=== PATIENT | male | born 1960 | race Caucasian/White ===

== ENCOUNTER 2021-08-11 00:05 | Inpatient (IN) | payer BC ==
[2021-08-11] MEDS ORDERED: Fentanyl 100 MCG/2 ML VIAL ONE ×2 (01:04→14:43)
[2021-08-11 01:09] LABS: #Lymphocytes 0.9 thou/uL (1.20-3.40); #Monocytes 0.3 thou/uL (0.11-0.59); #Neutrophils 3.3 thou/uL (1.40-6.50); %Basophils 0.3 % (0.0-1.0); %Eosinophils 0.7 % (0.0-10.0); %Monocytes 7.3 % (0.0-10.0); %Neutrophils 71.7 % (42.0-75.0); Hemoglobin 12.3 g/dL (14.0-18.0); Mean Corpuscular HGB CONC 34.1 g/dL (32.0-36.0); Mean Corpuscular Hemoglobin 35.5 pg (27.0-31.0); Mean Platelet Volume 8.4 fL (7.4-10.4); Platelet Count 117 thou/uL (130-400); RBC Distribution Width 13.5 % (11.5-14.5); Red Blood Cell (RBC) Count 3.48 mill/uL (4.70-6.10); White Blood Cell (WBC) Count 4.6 thou/uL (4.8-10.8)
[2021-08-11 01:28] LABS: ALT (SGPT) 46 U/L (8-55); AST (SGOT) 65 U/L (5-34); Albumin 2.7 g/dL (3.5-5.0); Alkaline Phosphatase 82 U/L (40-110); Anion Gap 18 mmol/L (10-20); BUN (Urea Nitrogen) 28 mg/dL (8.4-25.7); Bilirubin, Total 0.8 mg/dL (0.2-1.2); Calc. Creatinine Clearance 0 mL/min (70-130); Carbon Dioxide 25 mmol/L (22-29); Chloride 101 mmol/L (98-107); Globulin 8.6 g/dL (2.4-3.5); Glucose 153 mg/dL (70-105); Potassium 3.9 mmol/L (3.5-5.1); Protein, Total 11.3 g/dL (6.0-8.3); Sodium 140 mmol/L (136-145)
[2021-08-11 01:31] LABS: Calcium 14.8 mg/dL (7.8-10.44)
[2021-08-11 01:54] LABS: Bilirubin Negative (Negative); Blood, Urine Negative (Negative); Clarity Clear (Clear); Glucose, Urine (Dipstick) Normal (Negative); Ketone, Urine Negative (Negative); Leukocyte Negative Leu/uL (Negative); Nitrite Negative (Negative); Protein, Urine (Dipstick) 10 mg/dL (Neg-Trace); Urobilinogen Normal mg/dL (Less than 2)
[2021-08-11 05:05] VITALS: BMI 32.3
[2021-08-11] MEDS ORDERED: Dexamethasone 10 MG in Sodium Chloride 0.9% 50 ML IVPB SCH (08:15)
[2021-08-11] MEDS ORDERED: Dexamethasone 10 MG/ML VIAL SLOW IVP SCH (08:30)
[2021-08-11 09:24] LABS: Free T4 (Free Thyroxine) 1.02 ng/dL (0.70-1.48)
[2021-08-11] MEDS ORDERED: Morphine 2 MG/ML VIAL SLOW IVP PRN (09:29)
[2021-08-11] MEDS ORDERED: Famotidine 20 MG TAB ONE (09:41)
[2021-08-11] MEDS ORDERED: Dexamethasone 10 MG/ML VIAL ONE (09:41)
[2021-08-11] MEDS: Famotidine 20 MG TAB PO SCH ×2 (09:43→19:47)
[2021-08-11] MEDS: Sodium Chloride 0.9% 1,000 ML IV SCH ×3 (09:43→19:48)
[2021-08-11 13:15] LABS: Creatinine, Urine 52.98 mg/dL (63-166)
[2021-08-11] MEDS ORDERED: Morphine 4 MG/ML VIAL ONE (13:24)
[2021-08-11] MEDS ORDERED: Sodium Bicarbonate 2.5 MEQ/5 ML VIAL ONE (14:43)
[2021-08-11] MEDS ORDERED: Metoprolol Tartrate 50 MG TAB PO SCH (18:30)
[2021-08-11] MEDS ORDERED: Morphine 4 MG/ML VIAL SLOW IVP PRN ×2 (18:45→19:06)
[2021-08-11] MEDS: Morphine 4 MG/ML VIAL SLOW IVP PRN (19:48)
[2021-08-12] MEDS: Morphine 4 MG/ML VIAL SLOW IVP PRN ×4 (00:55→17:37)
[2021-08-12] MEDS: Sodium Chloride 0.9% 1,000 ML IV SCH ×3 (05:15→19:33)
[2021-08-12 06:31] LABS: #Lymphocytes 0.7 thou/uL (1.20-3.40); #Monocytes 0.4 thou/uL (0.11-0.59); #Neutrophils 3.4 thou/uL (1.40-6.50); %Eosinophils 0.2 % (0.0-10.0); %Monocytes 9.8 % (0.0-10.0); %Neutrophils 74.9 % (42.0-75.0); Hemoglobin 11.3 g/dL (14.0-18.0); Mean Corpuscular HGB CONC 34.1 g/dL (32.0-36.0); Mean Corpuscular Hemoglobin 35.5 pg (27.0-31.0); Mean Platelet Volume 8.7 fL (7.4-10.4); Platelet Count 108 thou/uL (130-400); RBC Distribution Width 13.5 % (11.5-14.5); Red Blood Cell (RBC) Count 3.18 mill/uL (4.70-6.10); White Blood Cell (WBC) Count 4.5 thou/uL (4.8-10.8)
[2021-08-12 06:45] LABS: Anion Gap 16 mmol/L (10-20); BUN (Urea Nitrogen) 29 mg/dL (8.4-25.7); Calc. Creatinine Clearance 87 mL/min (70-130); Carbon Dioxide 24 mmol/L (22-29); Chloride 103 mmol/L (98-107); Glucose 132 mg/dL (70-105); Potassium 3.7 mmol/L (3.5-5.1); Sodium 139 mmol/L (136-145)
[2021-08-12 06:51] LABS: Calcium 13.3 mg/dL (7.8-10.44)
[2021-08-12] MEDS ORDERED: Sodium Bicarbonate 2.5 MEQ/5 ML VIAL ONE (08:00)
[2021-08-12] MEDS ORDERED: hydrALAZINE 20 MG/ML VIAL SLOW IVP PRN (08:04)
[2021-08-12] MEDS: hydrALAZINE 25 MG TAB PO SCH ×3 (09:51→20:21)
[2021-08-12] MEDS: Famotidine 20 MG TAB PO SCH ×2 (09:52→20:21)
[2021-08-12 12:51] LABS: SARS-CoV-2 PCR by NAA Not Detected (NotDetected)
[2021-08-12] MEDS ORDERED: Dexamethasone 40 MG in Sodium Chloride 0.9% 50 ML IVPB SCH (15:00)
[2021-08-12] MEDS: HYDROcodone/Acetaminophen 5/325 mg Tablet PO SCH ×2 (17:20→20:22)
[2021-08-12] MEDS: Zoledronic Acid 4 MG in Sodium Chloride 0.9% 100 ML IVPB SCH ×2 (17:43→19:30)
[2021-08-13] MEDS: Sodium Chloride 0.9% 1,000 ML IV SCH ×3 (01:04→21:00)
[2021-08-13] MEDS: HYDROcodone/Acetaminophen 5/325 mg Tablet PO SCH ×6 (01:04→20:38)
[2021-08-13 07:07] LABS: #Lymphocytes 0.6 thou/uL (1.20-3.40); #Monocytes 0.1 thou/uL (0.11-0.59); #Neutrophils 3.3 thou/uL (1.40-6.50); %Eosinophils 0.3 % (0.0-10.0); %Lymphocytes 14.2 % (21.0-51.0); %Monocytes 3.1 % (0.0-10.0); %Neutrophils 82.4 % (42.0-75.0); Hemoglobin 11.1 g/dL (14.0-18.0); Mean Corpuscular HGB CONC 34.1 g/dL (32.0-36.0); Mean Platelet Volume 9.3 fL (7.4-10.4); Platelet Count 95 thou/uL (130-400); RBC Distribution Width 13.4 % (11.5-14.5); White Blood Cell (WBC) Count 4.1 thou/uL (4.8-10.8)
[2021-08-13 07:22] LABS: ALT (SGPT) 35 U/L (8-55); AST (SGOT) 50 U/L (5-34); Albumin 2.4 g/dL (3.5-5.0); Alkaline Phosphatase 74 U/L (40-110); Anion Gap 16 mmol/L (10-20); BUN (Urea Nitrogen) 33 mg/dL (8.4-25.7); Bilirubin, Total 0.7 mg/dL (0.2-1.2); Calc. Creatinine Clearance 90 mL/min (70-130); Carbon Dioxide 24 mmol/L (22-29); Chloride 101 mmol/L (98-107); Globulin 7.9 g/dL (2.4-3.5); Glucose 173 mg/dL (70-105); Potassium 3.8 mmol/L (3.5-5.1); Protein, Total 10.3 g/dL (6.0-8.3); Sodium 137 mmol/L (136-145)
[2021-08-13 07:29] LABS: Calcium 12.2 mg/dL (7.8-10.44)
[2021-08-13] MEDS: Dexamethasone Sod Phosphate 40 MG in Sodium Chloride 0.9% 50 ML IVPB SCH (08:40)
[2021-08-13] MEDS: hydrALAZINE 25 MG TAB PO SCH ×3 (08:40→20:37)
[2021-08-13] MEDS: Rivaroxaban 10 MG TAB PO SCH (08:40)
[2021-08-13] MEDS ORDERED: Dexamethasone 40 MG in Sodium Chloride 0.9% 50 ML IVPB SCH (09:00)
[2021-08-13 09:14] LABS: Kappa Light Chains 5.7 mg/L (3.3-19.4); Lambda Light Chain 8.1 mg/L (5.7-26.3)
[2021-08-13 13:15] LABS: IFE-Serum Interpretation Note: (.); IgA - Total IgA (Sendout) 6267 mg/dL (90-386); Immunoglobulin - G (Sendout) 346 mg/dL (603-1613); Immunoglobulin - M (Sendout) 32 mg/dL (20-172)
[2021-08-13 14:39] LABS: A/G Ratio 0.4 (0.7-1.7); Albumin 3.1 g/dL (2.9-4.4); Alpha 1 0.3 g/dL (0.0-0.4); Alpha 2 0.4 g/dL (0.4-1.0); Gamma 0.3 g/dL (0.4-1.8); Globulin, Total 7.1 g/dL (2.2-3.9); M-Spike 4.9 g/dL (Not Observed)
[2021-08-13] MEDS ORDERED: Amlodipine 5 MG TAB PO SCH (17:30)
[2021-08-14] MEDS: HYDROcodone/Acetaminophen 5/325 mg Tablet PO SCH ×6 (00:40→21:12)
[2021-08-14] MEDS: Sodium Chloride 0.9% 1,000 ML IV SCH ×2 (00:41→12:56)
[2021-08-14 07:03] LABS: #Lymphocytes 0.3 thou/uL (1.20-3.40); #Monocytes 0.5 thou/uL (0.11-0.59); %Eosinophils 0.1 % (0.0-10.0); %Lymphocytes 6.4 % (21.0-51.0); %Monocytes 10.5 % (0.0-10.0); %Neutrophils 83.1 % (42.0-75.0); Hemoglobin 10.7 g/dL (14.0-18.0); Mean Corpuscular HGB CONC 35.1 g/dL (32.0-36.0); Mean Corpuscular Hemoglobin 36.7 pg (27.0-31.0); Mean Platelet Volume 9.2 fL (7.4-10.4); Platelet Count 83 thou/uL (130-400); RBC Distribution Width 13.4 % (11.5-14.5); White Blood Cell (WBC) Count 4.8 thou/uL (4.8-10.8)
[2021-08-14 07:25] LABS: ALT (SGPT) 54 U/L (8-55); AST (SGOT) 65 U/L (5-34); Albumin 2.2 g/dL (3.5-5.0); Alkaline Phosphatase 68 U/L (40-110); Anion Gap 15 mmol/L (10-20); BUN (Urea Nitrogen) 29 mg/dL (8.4-25.7); Bilirubin, Total 0.5 mg/dL (0.2-1.2); Calc. Creatinine Clearance 103 mL/min (70-130); Calcium 10.1 mg/dL (7.8-10.44); Carbon Dioxide 23 mmol/L (22-29); Chloride 101 mmol/L (98-107); Globulin 7.2 g/dL (2.4-3.5); Glucose 160 mg/dL (70-105); Potassium 3.4 mmol/L (3.5-5.1); Protein, Total 9.4 g/dL (6.0-8.3); Sodium 136 mmol/L (136-145)
[2021-08-14] MEDS: Dexamethasone Sod Phosphate 40 MG in Sodium Chloride 0.9% 50 ML IVPB SCH (08:16)
[2021-08-14] MEDS: hydrALAZINE 25 MG TAB PO SCH ×3 (08:17→21:13)
[2021-08-14] MEDS: Rivaroxaban 10 MG TAB PO SCH (08:17)
[2021-08-14] MEDS: Amlodipine 5 MG TAB PO SCH (08:18)
[2021-08-14] MEDS ORDERED: Potassium Chloride 20 MEQ TAB PO SCH (11:00)
[2021-08-14 15:15] LABS: Beta-2-Microglobulin 3.2 mg/L (0.6-2.4)
[2021-08-14] MEDS ORDERED: BORTEZOMIB SC SCH (15:15)
[2021-08-14] MEDS ORDERED: ADMIXTURE FEE SC SCH (15:15)
[2021-08-15] MEDS: HYDROcodone/Acetaminophen 5/325 mg Tablet PO SCH ×5 (00:54→16:19)
[2021-08-15] MEDS: Sodium Chloride 0.9% 1,000 ML IV SCH ×2 (05:06→06:12)
[2021-08-15 06:49] LABS: #Lymphocytes 0.2 thou/uL (1.20-3.40); #Monocytes 0.5 thou/uL (0.11-0.59); #Neutrophils 3.1 thou/uL (1.40-6.50); %Lymphocytes 6.3 % (21.0-51.0); %Monocytes 12.8 % (0.0-10.0); Hemoglobin 10.1 g/dL (14.0-18.0); Mean Corpuscular HGB CONC 34.4 g/dL (32.0-36.0); Mean Corpuscular Hemoglobin 36.2 pg (27.0-31.0); Mean Platelet Volume 9.5 fL (7.4-10.4); Platelet Count 83 thou/uL (130-400); RBC Distribution Width 13.5 % (11.5-14.5); White Blood Cell (WBC) Count 3.8 thou/uL (4.8-10.8)
[2021-08-15 07:10] LABS: ALT (SGPT) 72 U/L (8-55); AST (SGOT) 74 U/L (5-34); Albumin 2.2 g/dL (3.5-5.0); Alkaline Phosphatase 67 U/L (40-110); Anion Gap 16 mmol/L (10-20); BUN (Urea Nitrogen) 27 mg/dL (8.4-25.7); Bilirubin, Total 0.5 mg/dL (0.2-1.2); Calc. Creatinine Clearance 108 mL/min (70-130); Calcium 9.4 mg/dL (7.8-10.44); Carbon Dioxide 23 mmol/L (22-29); Chloride 101 mmol/L (98-107); Globulin 7.2 g/dL (2.4-3.5); Glucose 157 mg/dL (70-105); Potassium 3.6 mmol/L (3.5-5.1); Protein, Total 9.4 g/dL (6.0-8.3); Sodium 136 mmol/L (136-145)
[2021-08-15] MEDS: Amlodipine 5 MG TAB PO SCH (08:55)
[2021-08-15] MEDS: Rivaroxaban 10 MG TAB PO SCH (08:55)
[2021-08-15] MEDS: hydrALAZINE 25 MG TAB PO SCH ×2 (08:55→16:19)
[2021-08-15] MEDS: Dexamethasone Sod Phosphate 40 MG in Sodium Chloride 0.9% 50 ML IVPB SCH (09:34)
[2021-08-15 16:23] VITALS: BP 165/100
[2021-08-15 16:31] VITALS: TEMP 97.8
[2021-08-19 13:58] LABS: Kappa/Lambda Ratio 3.34
[2021-08-19 16:30] LABS: Albumin-Ur 46.8
[2021-08-19 16:32] LABS: Alpha 1 - Ur 5.1; Beta-Ur 25.1
[2021-08-19 16:33] LABS: Gamma-Ur 11.9; M-Spike,% NOT OBSERVED
== END 2021-08-15 16:29 | disposition home health service (06) | DRG 840 ==
LOC: ERS 00:05 → ERHOLD 01:18 → T4-A 15:06
PROVIDERS: ADMIT Student in an Organized Health Care Education/Training Program; ATTEND Family Medicine
PROC: 3E0333Z Introduction of Anti-inflammatory into Peripheral Vein, Percutaneous Approach (ICD-10-PCS; 2021-08-11)
PROC: 079T3ZX Drainage of Bone Marrow, Percutaneous Approach, Diagnostic (ICD-10-PCS; principal; 2021-08-13)
PROC: 07DR3ZX Extraction of Iliac Bone Marrow, Percutaneous Approach, Diagnostic (ICD-10-PCS; 2021-08-13)
DX: C90.00 Multiple myeloma not having achieved remission (principal); G93.41 Metabolic encephalopathy; M84.58XA Pathological fracture in neoplastic disease, other specified site, initial encounter for fracture; N17.9 Acute kidney failure, unspecified; D68.8 Other specified coagulation defects; Z20.822 Contact with and (suspected) exposure to COVID-19; I48.91 Unspecified atrial fibrillation; E78.5 Hyperlipidemia, unspecified; E86.9 Volume depletion, unspecified; N18.30 Chronic kidney disease, stage 3 unspecified; I12.9 Hypertensive chronic kidney disease with stage 1 through stage 4 chronic kidney disease, or unspecified chronic kidney disease; D63.1 Anemia in chronic kidney disease; E79.0 Hyperuricemia without signs of inflammatory arthritis and tophaceous disease; E88.09 Other disorders of plasma-protein metabolism, not elsewhere classified; E55.9 Vitamin D deficiency, unspecified; Z86.718 Personal history of other venous thrombosis and embolism; Z88.5 Allergy status to narcotic agent; Z88.8 Allergy status to other drugs, medicaments and biological substances; Z79.899 Other long term (current) drug therapy; Z79.01 Long term (current) use of anticoagulants
CPT/HCPCS: 20225; 36415; 70450; 71045; 71275; 74177; 76380; 76536; 77012; 77075; 80048; 80053; 81003; 82232; 82306; 82570; 83615; 83735; 83880; 83883; 83970; 84156; 84165; 84166; 84439; 84443; 84481; 84484; 84550; 85025; 85041; 85048; 85060; 85610; 85730; 86334; 86335; 88121; 88184; 88185; 88237; 93005; 93306; 96365; 96374; 96375; J0360; J0630; J1100; J2270; J3010; J3475; J3489; J3490; J7050; J9041; U0002; U0003; U0005

== ENCOUNTER 2021-08-21 07:35 | Outpatient (CLI) | payer BC | END 2021-08-21 07:36 | disposition home or self-care (01) | LOC: PET 07:35 | PROVIDERS: ATTEND Internal Medicine Hematology & Oncology | DX: C90.00 Multiple myeloma not having achieved remission (principal); M89.9 Disorder of bone, unspecified | CPT/HCPCS: 78815; A9552 ==

== ENCOUNTER 2024-06-05 12:47 | Outpatient (CLI) | payer BC | END 2024-06-05 12:48 | disposition home or self-care (01) | LOC: SCSMRI 12:47 | PROVIDERS: ATTEND Internal Medicine Hematology & Oncology | DX: C90.00 Multiple myeloma not having achieved remission (principal); C79.51 Secondary malignant neoplasm of bone; M47.812 Spondylosis without myelopathy or radiculopathy, cervical region; M48.02 Spinal stenosis, cervical region; M48.03 Spinal stenosis, cervicothoracic region | CPT/HCPCS: 72156 ==